=== PATIENT | male | born 1970 ===

== ENCOUNTER → 2024-10-20 | Day surgery (SDC) | payer OTHER ==
[2024-10-14 12:25] VITALS: BP 143/80
[~2024-10-20] VITALS: Ht 188 cm; Wt 96.2 kg
[~2024-10-20] MED LIST: BUPIVACAINE HCL/MPF 0.5% 30ML VIAL ONE; CEFTRIAXONE SODIUM 2,000 MG VIAL ONE; DIBUCAINE 30 GM TUBE ONE; HEMOSTATIC MATRIX 1 KIT KIT TOP ONE; LEVOTHYROXINE; LIDOCAINE HCL 1%/EPINEPHRINE 20ML VIAL IJ ONE; METRONIDAZOLE/SODIUM CHLORIDE 500 MG/100 ML PIGGYBACK IV ONE; MORPHINE SULFATE 4 MG/ML VIAL IV ONE; ONDANSETRON HCL 2 MG/ML VIAL ONE; POVIDONE-IODINE 118 ML BOTT TOP ONE
== END | disposition home or self-care (01) ==
LOC: ADM 10-14 10:15 → CIR.AMB 06:20
PROVIDERS: ATTEND Colon & Rectal Surgery
DX: K64.2 Third degree hemorrhoids (principal); K64.4 Residual hemorrhoidal skin tags